=== PATIENT | male | born 1975 ===

== ENCOUNTER 2022-05-11 20:51 | Emergency (ER) | payer SELFPAY ==
[2022-05-11 21:44] VITALS: BP 124/74
--- NOTE | 2022-05-12 13:51 | Electrocardiograph Report ---
[facility] Test Date: 2022-05-11 Test Time: 22:05:16 Pat Name: LINDA GALLARDO Department: Room: Gender: M [employer]: JUANITA : 1975 Requested By: YESENIA SALEEM Order Number: [id number] Reading MD: Yumiko Lopez Measurements Intervals [place] Rate: 91 P: 78 MN: 141 QRS: 80 QRSD: 79 T: 56 QT: 348 QTc: 428 Interpretive Statements Sinus rhythm Probable left atrial enlargement Otherwise normal ECG No previous ECG available for comparison Electronically Signed On 05-12-2022 13:51:06 EDT by Yumiko Lopez
== END 2022-05-12 09:00 | disposition left against medical advice (07) ==
LOC: ED 20:51
DX: U07.1 COVID-19 (principal); Z53.21 Procedure and treatment not carried out due to patient leaving prior to being seen by health care provider
CPT/HCPCS: 93005